=== PATIENT | male | born 1980 | race Caucasian/White ===

== ENCOUNTER 2022-06-26 08:59 | Emergency (ER) | payer OTHER, SELFPAY | END 2022-06-26 10:20 | disposition home or self-care (01) | LOC: MADERS 08:59 | DX: S41.111A Laceration without foreign body of right upper arm, initial encounter (principal); W20.8XXA Other cause of strike by thrown, projected or falling object, initial encounter; Y93.89 Activity, other specified; Y92.65 Oil rig as the place of occurrence of the external cause | CPT/HCPCS: 12001 ==